=== PATIENT | male | born 1945 | race Caucasian/White ===

== ENCOUNTER 2016-11-02 12:00 | Inpatient (IN) | payer MEDICARE, BC ==
[~2016-11-02 12:00] MED LIST: AMLODIPINE BESY10 M1 PO; ATENOLOL50 M1 PO; BENICAR40 M1 PO; BUPROPION HCL150 M3 PO; CENTRUM SILVER1 EAC5 PO; FLONASE ALLERG9.9 ML; GLYBURIDE-METF1 EAC3 PO; IBUPROFEN200 M3 PO; LIPITOR10 M1 PO; VITAMIN B 12; ZYRTEC10 M7 PO
[2016-11-02] MEDS ORDERED: WELLBUTRIN SR100 M2 PO (13:04)
[2016-11-02] MEDS ORDERED: BENADRYL25 M3 PO (13:06)
[2016-11-02] MEDS ORDERED: MOTRIN IB200 M1 PO (13:08)
[2016-11-02] MEDS ORDERED: MEGACE400 MG/11 PO (13:11)
[2016-11-02 15:05] LABS: CREATINE PHOSPHOKINASE (CPK) 31 U/L (35-232)
[2016-11-02 15:38] LABS: T4 (THYROXINE) 7.1 ug/dl (5.0-12.6)
[2016-11-02 15:41] LABS: TSH-THYROID STIMULATING HORM. 11.1 uIU/ml (0.40-3.80)
[2016-11-02 22:45] LABS: INR 1.5 INR (0.9-1.1)
[2016-11-03 08:48] LABS: HCT-HEMATOCRIT 24.4 % (36.0-53.5); HGB-HEMOGLOBIN 7.6 gm/dl (13.5-17.0); IMMATURE GRANULOCYTES ABSOLUTE 0.02 tho/cmm (0-0.03); IMMATURE GRANULOCYTES PERCENT 0.2 % (0-0.3); LYMPH % 1.6 % (20-45); LYMPH ABSOLUTE COUNT 0.2 tho/cmm (0.8-4.5); MCH (MEAN CORPUSCULAR HGB) 25.7 pg (28.0-32.0); MCHC MEAN CORPUSCULAR HGB CONC 31.1 % (32.0-36.0); MCV (MEAN CELL VOLUME) 82.4 fl (82.0-96.0); MEAN PLATELET VOLUME 8.4 cmc (9.4-12.4); MONO % 3.4 % (0-12); MONOCYTE ABSOLUTE COUNT 0.3 tho/cmm (0.0-1.2); NEUTROPHIL ABSOLUTE COUNT 9.2 tho/cmm (1.6-8.0); NEUTROPHIL-AUTOMATED 9.2 tho/cmm (1.6-8.0); NEUTROPHILS % 94.8 % (40-80); PLATELET COUNT 334 tho/cmm (150-450); RED BLOOD COUNT 2.96 mil/cmm (4.40-5.70); RED CELL DISTRIBUTION WIDTH 17.8 % (12.4-16.4); WHITE BLOOD COUNT 9.7 tho/cmm (4.0-10.0)
[2016-11-03 08:59] LABS: ANION GAP 14 mmol/L (0-20); BLOOD UREA NITROGEN 8 mg/dl (6-24); CALCIUM 8.1 mg/dl (8.5-10.5); CARBON DIOXIDE-VENOUS 23 mmol/L (22-32); CHLORIDE 103 mmol/l (96-110); CREATININE 0.57 mg/dl (0.60-1.30); GLUCOSE 158 mg/dL (70-110); POTASSIUM 3.8 mmol/L (3.7-5.1); SODIUM 136 mmol/L (135-145); eGFR VALUE FOR BLACK >90 mL/Min
[2016-11-03 10:02] LABS: ALB/GLOB RATIO 0.5 (0.8-2.0); ALBUMIN 2.1 g/dl (3.5-5.0); ALKALINE PHOSPHATASE 112 U/L (33-138); ALT/SGPT 31 U/L (12-78); ANION GAP 16 mmol/L (0-20); AST/SGOT 23 U/L (10-40); BILIRUBIN,TOTAL 0.2 mg/dl (0.0-1.5); BLOOD UREA NITROGEN 8 mg/dl (6-24); CALCIUM 7.6 mg/dl (8.5-10.5); CARBON DIOXIDE-VENOUS 22 mmol/L (22-32); CHLORIDE 102 mmol/l (96-110); CREATININE 0.57 mg/dl (0.60-1.30); GLUCOSE 151 mg/dL (70-110); POTASSIUM 4.1 mmol/L (3.7-5.1); SODIUM 136 mmol/L (135-145); eGFR VALUE FOR BLACK >90 mL/Min
[2016-11-04 06:32] LABS: IMMATURE GRANULOCYTES ABSOLUTE 0.04 tho/cmm (0-0.03); IMMATURE GRANULOCYTES PERCENT 0.3 % (0-0.3); LYMPH % 1.5 % (20-45); LYMPH ABSOLUTE COUNT 0.2 tho/cmm (0.8-4.5); MCH (MEAN CORPUSCULAR HGB) 25.5 pg (28.0-32.0); MCHC MEAN CORPUSCULAR HGB CONC 30.8 % (32.0-36.0); MCV (MEAN CELL VOLUME) 82.8 fl (82.0-96.0); MEAN PLATELET VOLUME 8.4 cmc (9.4-12.4); MONO % 5.3 % (0-12); MONOCYTE ABSOLUTE COUNT 0.7 tho/cmm (0.0-1.2); NEUTROPHIL ABSOLUTE COUNT 12.4 tho/cmm (1.6-8.0); NEUTROPHIL-AUTOMATED 12.4 tho/cmm (1.6-8.0); NEUTROPHILS % 92.9 % (40-80); PLATELET COUNT 404 tho/cmm (150-450); RED BLOOD COUNT 3.14 mil/cmm (4.40-5.70); RED CELL DISTRIBUTION WIDTH 17.9 % (12.4-16.4); WHITE BLOOD COUNT 13.3 tho/cmm (4.0-10.0)
[2016-11-04 06:36] LABS: INR 1.3 INR (0.9-1.1); PROTHROMBIN TIME 15.8 SECONDS (9.0-13.6)
[2016-11-04 06:57] LABS: ANION GAP 12 mmol/L (0-20); CALCIUM 8.1 mg/dl (8.5-10.5); CARBON DIOXIDE-VENOUS 26 mmol/L (22-32); CHLORIDE 102 mmol/l (96-110); CREATININE 0.65 mg/dl (0.60-1.30); GLUCOSE 135 mg/dL (70-110); POTASSIUM 3.9 mmol/L (3.7-5.1); SODIUM 136 mmol/L (135-145); eGFR VALUE FOR BLACK >90 mL/Min
[2016-11-04 06:58] LABS: BLOOD UREA NITROGEN 9 mg/dl (6-24)
[2016-11-05 06:01] LABS: HCT-HEMATOCRIT 30.6 % (36.0-53.5); HGB-HEMOGLOBIN 9.5 gm/dl (13.5-17.0); IMMATURE GRANULOCYTES ABSOLUTE 0.03 tho/cmm (0-0.03); IMMATURE GRANULOCYTES PERCENT 0.3 % (0-0.3); LYMPH % 2.5 % (20-45); LYMPH ABSOLUTE COUNT 0.3 tho/cmm (0.8-4.5); MCH (MEAN CORPUSCULAR HGB) 25.6 pg (28.0-32.0); MCV (MEAN CELL VOLUME) 82.5 fl (82.0-96.0); MEAN PLATELET VOLUME 8.5 cmc (9.4-12.4); MONO % 7.6 % (0-12); MONOCYTE ABSOLUTE COUNT 0.9 tho/cmm (0.0-1.2); NEUTROPHIL ABSOLUTE COUNT 10.7 tho/cmm (1.6-8.0); NEUTROPHIL-AUTOMATED 10.7 tho/cmm (1.6-8.0); NEUTROPHILS % 89.6 % (40-80); PLATELET COUNT 451 tho/cmm (150-450); RED BLOOD COUNT 3.71 mil/cmm (4.40-5.70); RED CELL DISTRIBUTION WIDTH 17.6 % (12.4-16.4)
[2016-11-05 06:26] LABS: ANION GAP 13 mmol/L (0-20); BLOOD UREA NITROGEN 9 mg/dl (6-24); CALCIUM 8.6 mg/dl (8.5-10.5); CARBON DIOXIDE-VENOUS 28 mmol/L (22-32); CHLORIDE 99 mmol/l (96-110); GLUCOSE 136 mg/dL (70-110); POTASSIUM 3.7 mmol/L (3.7-5.1); SODIUM 136 mmol/L (135-145); eGFR VALUE FOR BLACK >90 mL/Min
[2016-11-06] MEDS ORDERED: OMEPRAZOLE20 M3 PO (08:34)
[2016-11-06] MEDS ORDERED: DEXAMETHASONE2 M1 PO (08:35)
[2016-11-06] MEDS ORDERED: SYNTHROID100 MC1 PO (08:37)
[2016-11-06] MEDS ORDERED: BUPROPION HCL100 M1 PO (08:39)
[2016-11-06] MEDS ORDERED: WELLBUTRIN SR200 M2 PO (08:39)
[2016-11-06] MEDS ORDERED: ASPIRIN325 M3 PO (08:41)
[2016-11-06] MEDS ORDERED: NICODERM CQ1 EAC2 TP (08:42)
[2016-11-06] MEDS ORDERED: LIPITOR10 M1 PO (08:42)
[2016-11-06] MEDS ORDERED: ALBUTEROL1.25 MG/3 INH (08:44)
[2016-11-06] MEDS ORDERED: IPRAT-ALBUT 0.5-3 ML INH (08:44)
== END 2016-11-06 12:30 | disposition hospice, home (50) | DRG 65 ==
LOC: 5WF 12:00
PROVIDERS: Internal Medicine Medical Oncology; Radiology Diagnostic Radiology; ADMIT Internal Medicine Hematology & Oncology
DX: I63.9 Cerebral infarction, unspecified (principal); C79.89 Secondary malignant neoplasm of other specified sites; I27.2 Other secondary pulmonary hypertension; I07.1 Rheumatic tricuspid insufficiency; R13.10 Dysphagia, unspecified; Z51.5 Encounter for palliative care; C76.0 Malignant neoplasm of head, face and neck; E78.5 Hyperlipidemia, unspecified; E11.9 Type 2 diabetes mellitus without complications; Z66 Do not resuscitate; I25.10 Atherosclerotic heart disease of native coronary artery without angina pectoris; J44.9 Chronic obstructive pulmonary disease, unspecified; E03.9 Hypothyroidism, unspecified; Z53.9 Procedure and treatment not carried out, unspecified reason; F17.210 Nicotine dependence, cigarettes, uncomplicated; R63.4 Abnormal weight loss; Z68.20 Body mass index [BMI] 20.0-20.9, adult
CPT/HCPCS: A9577; J1100; J1200; J1450; J2185; J7030; Q9967